=== PATIENT | male | born 1970 | race Caucasian/White ===

== ENCOUNTER 2016-08-24 09:30 | Emergency (ER) | payer OTHER ==
[~2016-08-24 09:30] MED LIST: ALBUTEROL17 GM; AMOXICILLIN500 M1 PO; BENZONATATE200 MG PO; CILOXAN5 ML OP; DIAZEPAM PO; DOXYCYCLINE HY100 M1 PO; HYCODAN60 ML 5MG/ PO; IBUPROFEN600 MG PO; MEDROL DOSEPAK4 MG PO; OXYCODONE HCL10 MG PO; PREDNISONE PO; PROVENTIL17 GM IH; TRAMADOL HCL50 M1 PO; ULTRAM PO; VICODIN 5/1 TAB 5/50 PO; VOLTAREN75 MG PO; [UNRECOGNIZED DRUG - OTHER] PO
== END 2016-08-24 09:34 | disposition home or self-care (01) ==
LOC: CFTX 09:30
DX: H60.92 Unspecified otitis externa, left ear (principal); R03.0 Elevated blood-pressure reading, without diagnosis of hypertension; G25.81 Restless legs syndrome; Z88.5 Allergy status to narcotic agent; F17.210 Nicotine dependence, cigarettes, uncomplicated; Z88.6 Allergy status to analgesic agent
CPT/HCPCS: 99283

== ENCOUNTER 2016-12-19 18:29 | Emergency (ER) | payer OTHER ==
--- NOTE | ~2016-12-19 | CT4 ---
[facility] A Service of [facility] RADIOLOGY TEXT RESULTS PATIENT: FLORY ROSS LOCATION: [facility] : 68 UNIT #: [id number] AGE: [address]: Kamlesh Madrid MD SEX: M ORDER DR: [id number] [facility] [address] [place], [place] [address] [id number] MR#: [id number] Acc #: [id number] NAME: FLORY ROSS. : 1970 SEX: M STUDY DATE/TIME: 12/19/2016 22:16 UNIT: [facility] ROOM: STUDY DESCRIPTION: CT Abd and Pelv Wo Cont Attending Physician: Kamlesh Madrid M.D. Ordering Physician: Kamlesh Madrid M.D. Primary Care Physician: No Primary Care Physician MEDICAL IMAGING REPORT This report is preliminary unless electronic signature is present EXAM CT scan of the abdomen and pelvis without contrast. INDICATION Abdomen pain left side since this morning. Also, nausea and vomiting. COMPARISON There is no comparison. TECHNIQUE Axial 5 mm images were obtained through the abdomen and pelvis without or IV or oral contrast. This CT exam was performed with one or more of the following radiation dose reduction techniques: Automatic exposure control, adjustment of mA and/or kV according to patient size, and iterative reconstruction. FINDINGS Lung bases are clear. The liver, gallbladder, spleen, pancreas, adrenal glands and kidneys are normal in appearance. The aorta is normal in size and there is no adenopathy. The bowel including the appendix appears normal except for some sigmoid diverticula. The bladder and prostate gland are normal. The bones show mild degenerative change in the lumbar spine with pars defects at L5. There is grade one anterior spondylolisthesis of L5 on S1. IMPRESSION 1. No cause for the left-sided pain is identified. 2. Sigmoid diverticula. 3. Degenerative changes L5-S1 with grade one anterior spondylolisthesis and there are bilateral pars defects at L5. Dictated by... [facility] A Service of [facility] RADIOLOGY TEXT RESULTS PATIENT: FLORY ROSS LOCATION: [facility] : 68 UNIT #: [id number] AGE: [address]: Kamlesh Madrid MD SEX: M ORDER DR: Clifford Hubbard M.D. THIS IS AN ELECTRONICALLY VERIFIED REPORT Clifford Hubbard M.D. at 12/20/2016 1:43 PM FEL/bd TD: 12/20/2016 12:47 JOB #: [id number] MEDICAL IMAGING REPORT Page 1 of 1 COPY
[2016-12-19 19:21] LABS: BASOPHIL# 0.1 X10e3 (0-0.3); BASOPHIL% 0.8 % (0-2.5); EOSINOPHIL# 0.1 X10e3 (0-0.7); EOSINOPHIL% 1.4 % (0.0-7.0); HEMATOCRIT 44.5 % (38.0-50.0); HEMOGLOBIN 15.2 gm/dL (13.0-16.0); LYMPHOCYTE# 2.1 X10e3 (1.0-3.5); LYMPHOCYTE% 23.3 % (17.0-45.0); MEAN CORPUSCULAR HEMOGLOBIN 30.8 PG (28-34); MEAN CORPUSCULAR HGB CONC 34.2 g/dL (30-36); MONOCYTE# 0.7 X10e3 (0-1.0); MONOCYTE% 8.1 % (3.0-12.0); NEUTROPHIL# 5.9 X10e3 (1.5-7.1); NEUTROPHIL% 66.4 % (40-75); PLATELET COUNT 267 X10e3 (140-420); RED BLOOD COUNT 4.94 X10e (3.90-5.60); RED CELL DISTRIBUTION WIDTH 13.2 % (11.0-15.5); WHITE BLOOD COUNT 8.8 X10e3 (4.0-10.5)
[2016-12-19 19:22] LABS: DIFF IND NO
[2016-12-19 19:44] LABS: ALBUMIN SERUM 4.4 g/dL (3.5-5.0); ALKALINE PHOSPHATASE 99 U/L (32-92); ALT (SGPT) 44 U/L (10-40); AST (SGOT) 23 U/L (10-42); BILIRUBIN,TOTAL 0.3 mg/dL (0.2-2.0); BLOOD UREA NITROGEN 14 mg/dL (9-23); BUN/CREATININE RATIO 15.55; CARBON DIOXIDE 23 mmol/L (22-31); CHLORIDE 103 mmol/L (100-111); CREATININE SERUM 0.9 mg/dL (0.6-1.4); GLOM FILT RATE Estimated 101.4 mL/min (>60); GLUCOSE FASTING 100 mg/dL (70-110); LIPASE 22 U/L (22-51); POTASSIUM 3.8 mmol/L (3.5-5.1); PROTEIN TOTAL SERUM 7.7 g/dL (6.0-8.3); SODIUM 136 mmol/L (135-145)
[2016-12-19 19:45] LABS: BILIRUBIN, DIRECT <0.1 mg/dL (0.0-0.2); BILIRUBIN,INDIRECT 0.2 mg/dL (0.0-0.9)
[2016-12-19 22:31] LABS: URINE SOURCE CLEAN CATCH
[2016-12-19 22:54] LABS: URINE APPEARANCE CLEAR; URINE BILIRUBIN NEG (NEG); URINE BLOOD NEG (NEG); URINE COLOR YELLOW; URINE GLUCOSE NEG (NEG); URINE KETONE NEG (NEG); URINE LEUKOCYTE ESTERASE NEG (NEG); URINE NITRATE NEG (NEG); URINE PROTEIN NEG (NEG)
[2016-12-19 23:08] LABS: CULTURE INDICATED? NO
== END 2016-12-19 23:10 | disposition home or self-care (01) ==
LOC: CED 18:29
DX: R10.32 Left lower quadrant pain (principal); R11.2 Nausea with vomiting, unspecified; M19.90 Unspecified osteoarthritis, unspecified site; F17.200 Nicotine dependence, unspecified, uncomplicated; Z88.5 Allergy status to narcotic agent; Z88.6 Allergy status to analgesic agent
CPT/HCPCS: 36415; 74176; 80048; 80076; 81003; 83690; 85025; 99284; J2270; J2405